=== PATIENT | male | born 1970 | race Two or more races ===

== ENCOUNTER 2024-10-12 23:44 | Emergency (ER) | payer BC, OTHER ==
[~2024-10-12] VITALS: Ht 170.2 cm; Wt 95.0 kg
[2024-10-13 01:08] LABS: Chloride 106 mmol/L (98-107); Potassium 4.3 mmol/L (3.5-5.1); Sodium 141 mmol/L (136-145)
[2024-10-13 01:09] LABS: Anion Gap 7 (5-15); Calcium 9.4 mg/dL (8.7-10.4); Carbon Dioxide 28 mmol/L (20-31)
[2024-10-13 01:14] LABS: BUN/Creatinine Ratio 17.5 (10.0-20.0); Blood Urea Nitrogen 14 mg/dL (9-23)
--- NOTE | 2024-10-13 01:15 | DVH ---
EXAM: CT HEAD WITHOUT CONTRAST INDICATION: Headache TECHNIQUE: CT of the head without intravenous contrast. Radiation Dose : 1. Head: CT Dose: CTDI volume is 62 mGy. Dose-length product is 1223 mGy*cm The dose indicators for CT are the volume Computed Tomography (CT) Dose Index (CTDIvol) and the Dose Length Product (DLP), and are measured in units of mGy and mGy-cm, respectively. These indicators are not patient dose, but values generated from the CT scanner acquisition factors. The report includes radiation exposure data for exposures received during this examination. COMPARISON: None FINDINGS: There is no evidence of acute intracranial hemorrhage, extra-axial collection, mass effect, midline s hift, herniation or hydrocephalus. The ventricles, sulci and cisterns are age appropriate. The estrada-white differentiation is intact. Patchy periventricular and subcortical white matter hypoattenuation is nonspecific but may be related to small vessel ischemic disease. Opacification of the left frontal sinus. Mastoid air cells are clear. The surrounding soft tissues and osseous structures are unremarkable. IMPRESSION: No acute intracranial abnormality.
--- NOTE | 2024-10-13 01:17 | DVH ---
EXAM: CT CERVICAL WITHOUT CONTRAST HISTORY: Left arm radiculopathy COMPARISON: None CTDIvol mGy, DLP mGy*cm. TECHNIQUE: Multiple axial CT images of the spine were obtained using bone algorithm. Axial and coron al reformatting was done. Bone and soft tissue windows were reviewed. FINDINGS: No prevertebral soft tissue abnormality noted. Straightening of the normal cervical lordosis; the ali gnment is otherwise unremarkable with no listhesis. The cervical vertebral bodies appear unremarkable with no evidence of fracture or dislocation. Visualized paraspinal soft tissues are grossly unremark able. Mild cervical spondylosis at C6-C7 with moderate right-sided and mild left-sided neural foraminal patrica rowing and mild spinal canal narrowing. IMPRESSION: No evidence of cervical spine fracture or dislocation.
[2024-10-13 01:18] LABS: Glucose 129 mg/dL (74-106)
[2024-10-13 02:30] LABS: Basophils # (auto) 0 10 ^3/uL (0-0.2); Basophils % (auto) 0.3 % (0.0-2.0); Eosinophils # (auto) 0.1 10 ^3/uL (0-0.8); Eosinophils % (auto) 1.1 % (0.0-7.0); Hematocrit 42.4 % (41.0-53.0); Hemoglobin 14.1 g/dL (13.5-17.5); Mean Corpuscular Hemoglobin 29.4 pg (28.0-32.0); Mean Corpuscular Hgb Conc. 33.3 g/dL (32.0-36.0); Mean Corpuscular Volume 88.2 fL (80.0-100.0); Monocytes # (auto) 0.4 10 ^3/uL (0-1.3); Monocytes % (auto) 6.4 % (0.0-12.0); Neutrophils # (auto) 3.5 10 ^3/uL (1.6-8.6); Neutrophils % (auto) 59.2 % (37.0-80.0); Nucleated Red Blood Cells % 0.1 %; Platelet Count (auto) 319 10^3/uL (140-450); Red Cell Distribution Width 13.6 % (11.8-14.3)
[2024-10-13] MEDS ORDERED: GABA-1250 PO (02:33)
--- NOTE | 2024-10-13 02:34 | ED.PDOC ---
History of Present Illness HPI Comments This patient is a 54-year-old Armenian-speaking only male who arrives the ED today for evaluation of left arm weakness concerns. Patient states the symptoms came on yesterday and has been relatively unrelenting. Patient complains of some numbness in the arm as well. Patient denies any head trauma or neck tra brigid. Patient was BEFAST negative at time of evaluation . Vital signs were stable. Chief Complaint: Left Sided Weakness Time Seen by MD: 00:35 Primary Care Provider: NANCY Rivera Notes: Nurses Notes Allergies: Coded Allergies: NO KNOWN ALLERGIES (Unverified , 02/11/15) Home Meds No Active Prescriptions or Reported Meds Information Source: Patient Mode of Arrival: Ambulatory Severity: Moderate Timing: Days Duration: Since onset Prehospital treatment: None Past Medical History PAST MEDICAL HISTORY: Denies Surgical History: Denies all surgeries Family History Family History: Unknown Social History Smoker: Non-Smoker Alcohol: Occasionally Drugs: Denies Drug Use Lives In: Home Constitutional: denies: chills, diaphoresis, fatigue, fever, malaise, sweats, weakness, others EENTM: denies: blurred vision, double vision, ear bleeding, ear discharge, ear drainage, ear pain, ear ringing, eye pain, eye redness, hearing loss, mouth pain, mouth swelling, nasal discharge, nose bleeding, nose congestion, nose pain, photophobia, tearing, throat pain, throat swelling, voice changes, others Respiratory: denies: cough, hemoptysis, orthopnea, SOB at rest, shortness of breath, SOB with excertion, stridor, wheezing, others Cardiovascular: denies: chest pain, dizzy spells, diaphoresis, Dyspnea on exertion, edema, irregular heart beat, left arm pain, lightheadedness, palp itations, PND, syncope, others Gastrointestinal: denies: abdomen distended, abdominal pain, blood streaked bowels, constipated, diarrhea, dysphagia, difficulty swallowing, hematemesis, melena, nausea, poor appetite, poor fluid intake, rectal bleeding, rectal pain, vomiting, others Genitourinary: denies: burning, dysuria, flank pain, frequency, hematuria, incontinence, penile discharge, penile sore, pain, testicle pain, testicle swelling, urgency, others Neurological: denies: dizziness, fainting, headache, left sided numbness, left sided weakness, numbness, paresthesia, pre-existing deficit, right sided numbness, right sided weakness, seizure, speech problems, tingling, tremors, weakness, others Musculoskeletal: reports: others (Left arm weakness and numbness); denies: back pain, gout, joint pain, joint swelling, muscle pain, muscle stiffness, neck pain Integumetry: denies: bruises, change in color, change in hair/nails, dryness, laceration, lesions, lumps, rash, wounds, others Allergic/Immunocompromised: denies: Difficulty Healing, Frequent Infections, Hives, Itching, others Hematologic/Lymphatic: denies: anemia, blood clots, easy bleeding, easy bruising, swollen glands, others Endocrine: denies: excessive hunger, excessive sweating, excessive thirst, excessive urination, flushing, intolerance to cold, intolerance to heat, unexplained weight gain, unexplained weight loss, others Psychiatric: denies: anxiety, bipolar disorder, depression, hopeless, panic disorder, schizophrenia, sleepless, suicidal, others Physical Exam General Appearance: Mild Distress (Moderate distress due to anxiety related to his left arm concerns.), Normal HEENT: Normal ENT Inspection, Pharynx Normal, TMs Normal Neck: Full Range of Motion, Non-Tender, Normal, Normal Inspection Respiratory: Chest Non-Tender, Lungs Clear, No Accessory Muscle Use, No Respir atory Distress, Normal Breath Sounds Cardiovascular: No Edema, No JVD, No Murmur, No Gallop, Normal Peripheral Pulses, Regular Rate/Rhythm Breast Exam: Deferred Gastrointestinal: No Organomegaly, Non Tender, No Pulsatile Mass, Normal Bowel Sounds, Soft Genitalia: Deferred Pelvic: Deferred Rectal: Deferred Extremities: Other (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 No signs of trauma. No edema or ecchymosis. Distal neurovascularly intact.) Neurologic: Alert, No Motor Deficits, Normal Affect, Normal Mood, No Sensory Deficits Cerebellar Function: Normal Reflexes: Normal Skin: Dry, Normal Color, Warm Lymphatic: No Adenopathy Was a procedure done? Was a procedure done?: No Differential Dx Considerations may include: Intracranial mass, cervical neuropathy, sepsis, Monday night palsy X-Ray, Labs, Meds, VS Vital Signs Date Time Temp Pulse Resp B/P (MAP) Pulse Ox O2 Delivery O2 Flow Rate FiO2 10/13/24 01:06 76 2/16/25 00:35 98.3 81 18 137/78 (97) 97 Lab Test 10/13/24 00:53 Range/Units White Blood Count Pending Red Blood Count Pending Hemoglobin Pending Hematocrit Pending Mean Corpuscular Volume Pending Mean Corpuscular Hemoglobin Pending Mean Corpuscular Hemoglobin Concent Pending Red Cell Distribution Width Pending Platelet Count Pending Mean Platelet Volume Pending Neutrophils (%) (Auto) Pending Lymphocytes (%) (Auto) Pending Monocytes (%) (Auto) Pending Basophils (%) (Auto) Pending Neutrophils # (Auto) Pending Lymphocytes # (Auto) Pending Monocytes # (Auto) Pending Sodium Level 141 136-145 mmol/L Potassium Level 4.3 3.5-5.1 mmol/L Chloride Level 106 98-107 mmol/L Carbon Dioxide Level 28 20-31 mmol/L Anion Gap 7 5-15 Blood Urea Nitrogen 14 9-23 mg/dL Creatinine 0.80 0.700-1.30 mg/dL Glomerular Filtration Rate Calc 105 >90 mL/min BUN/Creatinine Ratio 17.5 10.0-20.0 Serum Glucose 129 H 74-106 mg/dL Calcium Level 9.4 8.7-10.4 mg/dL Troponin I High Sensitivity < 3 L </=54 ng/L X-Ray, Labs, Meds, VS Comment All studies performed the ED were evaluated by me personally. Laboratories were unremarkable for any acute systemic process. Head CT and cervical spine CT were unremarkable for any acute concerns. No degenerative disc disease noted. Unknown as to the cause of the patient's left arm weakness. It may be a palsy event from how the patient has slept a few days ago. Advised patient that if his symptoms continue, he will need to follow up with the primary care provider for continued evaluation and management. Time of 1ST Reevaluation: 02:31 Reevaluation 1ST: Improved Consultation: PCP Patient Education/Counseling: Diagnosis, Treatment Family Education/Counseling: Diagnosis, Treatment Departure 1 Departure Time of Disposition: 02:32 Impression: Primary Impression: Neuropathy of left upper extremity Disposition: 01 HOME / SELF CARE / HOMELESS Condition: Stable Additional Instructions: Advised patient utilize medication as needed for symptomatic relief. If symptoms do not resolve, patient will need to follow up with primary care provider for continued evaluation and management. e-Prescriptions Gabapentin (Gabapentin) 300 Mg Cap 1 CAP PO QID, #20 CAP 0 Refills Prov: SOHA BARBER PAC 10/13/24 Discharged With: Self, Friend Critical Care Note Critical Care Time?: No Stability Stability form required: No Heart Score Heart Score: Heart Score Response (Comments) Value History Slightly Suspicious 0 EKG Normal 0 Age 45-64 1 Risk Factors 1 or 2 risk factors 1 Troponin Normal limit 0 Total 2 SOHA BARBER PAC Oct 13, 2024 02:34
[2024-10-13] MEDS: GABAPENTIN 300 MG CAP PO ONE (03:03)
[2024-10-13 03:10] VITALS: BP 147/84; O2SAT 97
[2024-10-13 03:12] VITALS: PULSE 74; RESP 18
--- NOTE | 2024-10-14 08:16 | ECG ---
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
== END 2024-10-13 03:14 | disposition home or self-care (01) ==
LOC: ER 23:44
DX: G62.9 Polyneuropathy, unspecified (principal)
CPT/HCPCS: 36415; 70450; 72125; 80048; 84484; 85025; 93005